=== PATIENT | female | born 1935 | race Caucasian/White ===

== ENCOUNTER 2019-02-22 08:31 | Observation (INO) ==
--- NOTE | 2019-02-22 09:24 | Emergency Department Note ---
Disposition Clinical Impression: Atypical chest pain Disposition: Admitted As Inpatient Condition: Good Referrals: Trevor Pierce, [employer] [Primary Care Provider] - Forms: ED Satisfaction Letter, Work/School Release Time of Disposition: 10:42 General Adult HPI - General Chief complaint: ED General Medical Stated complaint: R arm pain, back of head, dizzy Time Seen by Provider: 02/22/19 09:23 Source: patient Mode of arrival: ambulatory Limitations: no limitations - History of Present Illness HPI Narrative: 83-year-old white female [facility] this morning. She apparently had horrible right arm pain that seemed to be a sudden onset and people were concerned that she may be having a heart attack. She says that her arm no longer hurts. She says that her arm pain started last night while she was making dinner and felt like a dull ache. She says that she does not sleep well and woke up at 2:30 this morning. She says that she did some reading and dosed in and out. She says that she really did not have much problem until she came to the hospitalist morning. She says that her arm "was painting" so badly that someone else noticed. She also notes that she has had no previous problems with her heart, but does have a history of COPD. She says that she saw her primary care physician yesterday as a normal checkup. She says that we discussed the fact that she gets more short of breath with activity. She says that he added a new inhaler for her and she used that this morning. He also noted that if she had an elevation in her blood pressure that "he was going to send her to the heart doctor." She says that her blood pressure was okay so this was not necessary. She says that may be the shortness of breath with exertion has gotten worse recently. She is not short of breath currently. Pain Scale: 10 - Related Data Home Medications Medication Instructions Recorded Confirmed Gabapentin [Neurontin] 600 mg PO DAILY 08/15/16 02/22/19 Lisinopril [Zestril] 10 mg PO DAILY 08/15/16 02/22/19 Omeprazole [PriLOSEC] 40 mg PO BID 08/15/16 02/22/19 DULoxetine [Cymbalta] 02/22/19 Ropinirole HCl [Requip] 02/22/19 02/22/19 traZODone [TraZODone] 02/22/19 Previous Rx's Medication Instructions Recorded Ferrous Sulfate [Iron] 325 mg PO DAILY #30 tablet 01/04/19 Allergies Allergy/AdvReac Type Severity Reaction Status Date / Time morphine Allergy Rash Verified 01/03/19 10:59 oxycodone [From OxyContin] Allergy Chest Pain Verified 01/03/19 10:59 Penicillins [PCN] Allergy Chest Pain Verified 01/03/19 10:59 All systems ED: reviewed and negative except as stated. Constitutional: Denies: fever, chills, weakness, weight change Eyes: Denies: eye pain, eye discharge, vision change ENT ED: Denies: ear pain, throat pain, dental pain, hearing loss, epistaxis, congestion, dysphagia Cardiovascular: Reports: as per HPI, dyspnea on exertion. Denies: chest pain, palpitations Respiratory: Reports: as per HPI. Denies: cough, dyspnea, wheezes, hemoptysis, stridor Gastrointestinal: Denies: abdominal pain, nausea, vomiting, diarrhea, constipation, hematemesis, melena, hematochezia Genitourinary: Denies: dysuria, frequency, hematuria, discharge Musculoskeletal: Reports: as per HPI, myalgia. Denies: back pain, neck pain, arthralgia Integumentary: Denies: rash, abrasion, lesions Neurological: Denies: headache, weakness, numbness, paresthesias, confusion, abnormal gait, vertigo Psychiatric: Denies: anxiety, depression, suicidal thoughts, homicidal thoughts, auditory hallucinations, visual hallucinations Endocrine: Denies: fatigue Hematological/Lymphatic: Denies: easy bleeding, easy bruising Allergic/Immunologic: Denies: facial swelling, urticaria Past Medical History - Past Medical History Medical history: Reports: arthritis, cancer, COPD, GERD, hypertension Surgical history: Reports: breast surgery, cancer surgery, hysterectomy, knee replacement, orthopedic, other Psychiatric history: Reports: anxiety, depression 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 - Social History Smoking Status: Never smoker Smokeless Tobacco Status: No Alcohol use: Reports: none Drug use: Reports: none Physical Exam - General Limitations: no limitations General appearance: alert - Head Head exam: atraumatic, normocephalic, normal inspection - Eye Eye exam: Present: normal appearance, PERRL, EOMI - ENT ENT exam: normal exam, normal oropharynx, mucous membranes moist, TM's normal bilaterally - Neck Neck exam: Present: normal inspection - Chest Chest inspection: Present: normal inspection, symmetric chest wall rise - Respiratory Respiratory exam: Present: normal lung sounds bilaterally. Absent: respiratory distress, wheezes - Cardiovascular Cardiovascular exam: Present: regular rate, normal rhythm, normal heart sounds - Abdominal Exam Abdominal exam: Present: soft, Non-Tender. Absent: tenderness, distention, guarding, rebound, rigidity, organomegaly, mass, pulsatile mass - Extremities Exam Extremities exam: Present: normal inspection, full ROM. Absent: tenderness, pedal edema - Back Exam Back exam: Present: normal inspection, full ROM. Absent: tenderness - Neurological Exam Neurological exam: Present: alert, oriented X3, CN II-XII intact. Absent: motor sensory deficit - Psychiatric Psychiatric exam: Present: normal affect, normal mood - Skin Skin exam: Present: warm, dry, intact, normal color Course Course Narrative: The patient remained stable throughout her emergency department stay. She had no further pain, but says her pain comes and goes. The results of her evaluatio n are discussed with her and her daughter. Spoke with Dr. Butler at 10:30 AM and the patient will be observed here in [place]. Vital Signs Temperature 97.6 F 02/22/19 08:41 Pulse Rate 81 02/22/19 08:41 Respiratory Rate 18 02/22/19 08:41 Blood Pressure 148/70 02/22/19 08:41 O2 Sat by Pulse Oximetry 96 02/22/19 08:41 Temperature 97.6 F 02/22/19 08:41 Pulse Rate 66 02/22/19 10:39 Respiratory Rate 18 02/22/19 10:39 Blood Pressure 152/70 02/22/19 10:39 O2 Sat by Pulse Oximetry 95 02/22/19 10:39 Oxygen Delivery Oxygen Delivery Room Air Medical Decision Making - Lab Data Result diagrams: 02/22/19 09:43 02/22/19 09:43 Lab Results 02/22/19 02/22/19 02/22/19 Range/Units 09:43 09:43 09:43 WBC 5.0 (4.3-11.1) K/mcL RBC 4.20 (3.82-4.97) M/mcL Hgb 11.6 (11.5-15.4) g/dL Hct 37.7 (35.3-44.9) % MCV 89.8 (83.0-100.0) fL MCH 27.6 L (28.0-33.3) pg MCHC 30.8 L (31.6-35.5) g/dL RDW 16.8 H (11.5-14.5) % Plt Count 188 (140-400) K/mcL MPV 9.1 L (9.4-12.4) fL Immature Gran % 0.2 (0-4) % Seg Neutrophils % 53.5 % Lymphocytes % 32.0 % Monocytes % 9.7 % Eosinophils % 4.2 % Basophils % 0.4 % Neutrophils # 2.7 (1.6-8.9) K/mcL Lymphocytes # 1.6 (0.6-4.6) K/mcL Monocytes # 0.5 (0.0-1.3) K/mcL Eosinophils # 0.2 (0.0-0.6) K/mcL Basophils # 0.0 (0.0-0.2) K/mcL PT 11.5 (9.4-12.1) Seconds INR 1.0 Sodium 138 (136-145) mEq/L Potassium 4.1 (3.5-5.1) mEq/L Chloride 104 (98-107) mEq/L Carbon Dioxide 31 H (23-29) mEq/L BUN 11 (8-23) mg/dL Creatinine 0.83 (0.60-1.20) mg/dL Est GFR ( Amer) > 60 (> 60) Est GFR (Non-Af Amer) > 60 (> 60) BUN/Creatinine Ratio 13 (6-26) Glucose 144 H (70-105) mg/dL Calculated Osmolality 288 (280-300) Lactic Acid (0.5-2.2) mmol/L Calcium 9.4 (8.6-10.3) mg/dL Total Bilirubin 0.3 (0.3-1.0) mg/dL AST 18 (13-39) Units/L ALT 14 (7-52) Units/L Alkaline Phosphatase 80 (34-104) Units/L Troponin I < 0.03 (< 0.04) ng/mL Serum Total Protein 6.9 (6.4-8.9) g/dL Albumin 4.0 (3.5-5.7) g/dL Globulin 2.9 (2.4-3.5) g/dL Albumin/Globulin Ratio 1.4 (1.1-2.2) 02/22/19 Range/Units 09:43 WBC (4.3-11.1) K/mcL RBC (3.82-4.97) M/mcL Hgb (11.5-15.4) g/dL Hct (35.3-44.9) % MCV (83.0-100.0) fL MCH (28.0-33.3) pg MCHC (31.6-35.5) g/dL RDW (11.5-14.5) % Plt Count (140-400) K/mcL MPV (9.4-12.4) fL Immature Gran % (0-4) % Seg Neutrophils % % Lymphocytes % % Monocytes % % Eosinophils % % Basophils % % Neutrophils # (1.6-8.9) K/mcL Lymphocytes # (0.6-4.6) K/mcL Monocytes # (0.0-1.3) K/mcL Eosinophils # (0.0-0.6) K/mcL Basophils # (0.0-0.2) K/mcL PT (9.4-12.1) Seconds INR Sodium (136-145) mEq/L Potassium (3.5-5.1) mEq/L Chloride (98-107) mEq/L Carbon Dioxide (23-29) mEq/L BUN (8-23) mg/dL Creatinine (0.60-1.20) mg/dL Est GFR ( Amer) (> 60) Est GFR (Non-Af Amer) (> 60) BUN/Creatinine Ratio (6-26) Glucose (70-105) mg/dL Calculated Osmolality (280-300) Lactic Acid 0.9 (0.5-2.2) mmol/L Calcium (8.6-10.3) mg/dL Total Bilirubin (0.3-1.0) mg/dL AST (13-39) Units/L ALT (7-52) Units/L Alkaline Phosphatase (34-104) Units/L Troponin I (< 0.04) ng/mL Serum Total Protein (6.4-8.9) g/dL Albumin (3.5-5.7) g/dL Globulin (2.4-3.5) g/dL Albumin/Globulin Ratio (1.1-2.2) - EKG Data EKG #1 EKG results narrative: Twelve-lead EKG shows a left bundle-branch block that is not new. Rate 77. Normal axis. No acute ST elevation or depression appreciated.
[2019-02-22] MEDS ORDERED: Aspirin 81 MG TAB.CHEW PO STA (09:32)
[2019-02-22 09:50] LABS: Basophils % 0.4 %; Eosinophils # 0.2 K/mcL (0.0-0.6); Eosinophils % 4.2 %; Hematocrit 37.7 % (35.3-44.9); Hemoglobin 11.6 g/dL (11.5-15.4); Immature Granulocytes % 0.2 % (0-4); Lymphocytes # 1.6 K/mcL (0.6-4.6); Mean Corpuscular HGB Conc 30.8 g/dL (31.6-35.5); Mean Corpuscular Hemoglobin 27.6 pg (28.0-33.3); Mean Corpuscular Volume 89.8 fL (83.0-100.0); Mean Platelet Volume 9.1 fL (9.4-12.4); Monocytes # 0.5 K/mcL (0.0-1.3); Monocytes % 9.7 %; Neutrophils # 2.7 K/mcL (1.6-8.9); Platelet Count 188 K/mcL (140-400); Red Cell Distribution Width 16.8 % (11.5-14.5); Segmented Neutrophils % 53.5 %
[2019-02-22 10:00] LABS: Prothrombin Time 11.5 Seconds (9.4-12.1)
[2019-02-22 10:05] LABS: Alanine Aminotransferase 14 Units/L (7-52); Albumin/Globulin Ratio 1.4 (1.1-2.2); Alkaline Phosphatase 80 Units/L (34-104); Aspartate Amino Transferase 18 Units/L (13-39); BUN/Creatinine Ratio 13 (6-26); Bilirubin,Total 0.3 mg/dL (0.3-1.0); Blood Urea Nitrogen 11 mg/dL (8-23); Calcium 9.4 mg/dL (8.6-10.3); Carbon Dioxide 31 mEq/L (23-29); Chloride 104 mEq/L (98-107); Globulin 2.9 g/dL (2.4-3.5); Glucose 144 mg/dL (70-105); Osmolality,Calculated 288 (280-300); Potassium 4.1 mEq/L (3.5-5.1); Sodium 138 mEq/L (136-145); Total Protein 6.9 g/dL (6.4-8.9); eGFR For Non-African Americans > 60 (> 60)
[2019-02-22 10:09] LABS: Troponin I < 0.03 ng/mL (< 0.04)
--- NOTE | 2019-02-22 12:14 | Internal Med History&Physical ---
Addendum entered and electronically signed by Chetan Butler MD 02/23/19 10:10: I have personally performed a face to face evaluation on this patient. I have r eviewed and agree with the care plan. History and Exam by me shows: The patient was evaluated by me yesterday but the note was not complete. This documentation is being completed today for that reason. Patient with onset of severe arm pain to the elbow when lifting her hands above head touching clay on her car. No exertional chest pain or pressure, dyspnea on exertion beyond her usual. Discussed at length with her. This sounds more like shoulder pain but since rule out has been begun, troponins will be obtained. Patient has no complaint of chest discomfort, dyspnea, orthopnea, breathing problems, palpitations, nausea or vomiting, constipation or diarrhea, other changes in bowel habits, heartburn, difficulty with urination, kidney problems or kidney stones, fevers chills or sweats, rash or itching, seizures, headache or lightheadedness, heat or cold intolerance, blood problems or anemia, or other new complaints, except as mentioned above. Review of systems is otherwise negative. Examination: (Except as mentioned above): General: In no apparent distress, alert and oriented 3. Head: Atraumatic and normocephalic. Eyes: Extraocular muscles are intact, pupils equal round and reactive to light and accommodation. Sclerae anicteric. Ears: External ears are normal to inspection and hearing is grossly normal. Nose: Patent without lesion noted. Mouth: No intraoral lesions seen. Dentition is unremarkable. Neck: Supple with trachea midline. There is no thyromegaly or adenopathy and carotids are 2+ without bruit heard. Respiratory: No use of accessory muscles. Lungs are clear throughout. Normal airflow. Cardiovascular: Regular rate and rhythm without murmur appreciated. Abdomen: Bowel sounds are normal. No hepatosplenomegaly masses or tenderness. Obese and therefore difficult to palpate deeply. Extremities: No cyanosis clubbing or edema. She has tenderness to her right anterior shoulder. This partially reproduces her pain. Neurological: A and O 3. Cranial nerves II through XII are intact. No focal deficits and no abnormal movements or postures. Skin: Warm and non-diaphoretic with no lesions noted. Breasts, pelvic and rectal: Not examined. Original Note: Date of Encounter: 02/23/19 Time of Encounter: 12:07 Assessment and Plan (1) Right arm pain Current visit: Yes Status: Acute Patient presents with complaints of intermittent severe right arm pain. Patient states that this pain began yesterday, but later resolved later in the day. Patient's pain returned this morning, but resolved just prior to arriving to emergency department. Patient has had no further treatment other than aspirin. No current history of cardiac disease, but multiple risk factors. Initial troponin and EKG were negative. Chest x-ray shows no acute issues. Patient will be admitted to observation bed and will have serial troponins and cardiac monitoring overnight. (2) Anxiety Current visit: Yes Status: Chronic Patient with a history of anxiety and depression. Patient currently appears relaxed and is interacting with staff well. Patient states a recent history of family stress at is caused her increased anxiety. We will continue patient on her current home medications (3) Lower back pain Current visit: Yes Status: Chronic Patient states a history of lumbar disc disease with a remote surgery in the [facility]. Patient states she continues to have paresthesia to the left foot and after standing for long periods she develops paresthesia to her left lateral thigh. Denies any current low back pain. No focal neurological deficits noted. We will continue with current medications Qualifiers: Chronicity: unspecified Back pain laterality: left Sciatica laterality: sciatica of left side Qualified Code(s): M54.42 - Lumbago with sciatica, left side (4) GERD (gastroesophageal reflux disease) Current visit: Yes Status: Chronic Patient states a history of GERD and states that she has had recent reflux. We will continue patient on her PPI. We will consider gallbladder ultrasound Qualifiers: Esophagitis presence: esophagitis presence not specified Qualified Code(s): K21.9 - Gastro-esophageal reflux disease without esophagitis (5) HTN (hypertension) Current visit: No Status: Chronic Vital signs stable during her presentation. We will continue on her current home medications. Qualifiers: Hypertension type: essential hypertension Qualified Code(s): I10 - Essential (primary) hypertension Internal Medicine - H&P: HPI Chief complaint: right arm pain Admitted From: Home Plans for Post Hospital Care: Home History of present illness: Ms. Atwood is a 83 year old female, who presented to the emergency department with complaints of a right arm pain that has occurred intermittently over the past 24 hours. Patient states that her right arm pain had become very severe yesterday, which she describes as a sharp pain mostly to the upper arm. Patient states that after some time her pain resolved without any medication or intervention. 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 Patient states that her pain was noticeable to her fellow volunteers and he recommended her to come to the emergency department. Patient states that a similar pain to her right arm had occurred several years ago, during which time she went to the emergency department. Patient states that no reason was found at that time for the pain and that she received pain medication while in the emergency department, which allowed the pain to be relieved and it never returned after that until yesterday. Patient does state that she was doing several activities yesterday with repetitive movement of arm that may have exacerbated the pain. Patient states that today her pain recurred after she had reached up to shut the hatchback lid of her car. Patient states that her pain had resolved by the time she arrived to the emergency department. She denied any radiation of the pain anywhere else. She denied any shortness of breath, nausea or palpitations. Initial chest x-ray shows no acute process, except for a large hiatal hernia. Initial troponins were negative. EKG was reviewed which shows sinus rhythm with no ischemic changes Patient states that she has had no previous cardiac history and did receive a physical proximal 5 years ago in which she had a stress test. She states that her stress test was normal at that time. She has had some dyspnea with exertion recently and went to see her family physician recently, where she was diagnosed with mild COPD and given a rescue inhaler. She does state that she continues to have her gallbladder and has had a history of GERD, which she currently takes a PPI. She states a history of depression, hypertension and lumbar disc disease. She states that she has had lumbar surgery before and continues to have left leg paresthesia to the lower leg and foot. Patient states that there has been multiple stresses at home recently causing her increased anxiety and depression. Past Med Surg Social Fam HX - Past Medical History Medical history: arthritis, cancer, COPD, GERD, hypertension Additional medical history: htn. gerd. malignant neoplasm of breast Psychiatric history: anxiety, depression - Past Surgical History Surgical History: breast surgery, cancer surgery, hysterectomy, knee replacement, orthopedic, other Additional surgical history: Back surgery - Social History Smoking Status: Never smoker Smokeless Tobacco Status: No Alcohol use: none Drug use: none - Family History Mother Hx Family Cancer: Yes Internal Medicine - H&P: Meds RX: Gabapentin [Neurontin] 600 mg PO TID 08/15/16 [History] RX: Lisinopril [Zestril] 10 mg PO DAILY 08/15/16 [History] RX: Omeprazole [PriLOSEC] 40 mg PO BID 08/15/16 [History] RX: Ferrous Sulfate [Iron] 325 mg PO DAILY #30 tablet 01/04/19 [Rx] DULoxetine [Cymbalta] 60 mg PO DAILY 02/22/19 [History] Ropinirole HCl [Requip] 4 PO TID 02/22/19 [History] traZODone [TraZODone] 100 PO HS 02/22/19 [History] Allergy/AdvReac Type Severity Reaction Status Date / Time morphine Allergy Rash Verified 01/03/19 10:59 oxycodone [From OxyContin] Allergy Chest Pain Verified 01/03/19 10:59 Penicillins [PCN] Allergy Chest Pain Verified 01/03/19 10:59 All Systems PM: A 10-system review of systems was performed and is negative for pertinent findings except as documented above in the HPI. - Constitutional Constitutional: as per HPI, no chills, no fever(s), no night sweats - EENT Eyes: as per HPI, no change in vision, no discharge, no pain, no photophobia Ears: no ear discharge, no ear pain, no tinnitus Nose, mouth and throat: as per HPI, no dysphagia, no nasal discharge, no neck pain, no sore throat - Cardiovascular Cardiovascular ROS IM: as per HPI, no chest pain, no diaphoresis, no dyspnea, no lightheadedness, no palpitations, no syncope - Respiratory Respiratory: as per HPI, no cough, no dyspnea, no wheezing, no excessive phlegm production - Gastrointestinal Gastrointestinal: as per HPI, no abdominal pain, no diarrhea, no hematemesis, no hematochezia, no melena, no nausea, no vomiting - Genitourinary Genitourinary: as per HPI, no change in urinary stream, no dysuria, no flank pain, no hematuria - Musculoskeletal Musculoskeletal ROS IM: as per HPI, no numbness, no tingling - Integumentary Integumentary IM: as per HPI, no rash, no unusual bruising - Neurological Neurological ROS: as per HPI, paresthesias, no confusion, no convulsions, no focal weakness, no numbness, no tingling, no tremor(s) - Psychiatric Psychiatric: as per HPI, anxiety, depression - Endocrine Endocrine IM: as per HPI - Hematologic/Lymphatic Hematologic/Lymphatic: no easy bruising - Constitutional Vitals: Temp Pulse Resp BP Pulse Ox 97.6 F 66 18 152/70 95 02/22/19 08:41 02/22/19 10:39 02/22/19 10:39 02/22/19 10:39 02/22/19 10:39 General appearance: Present: A&O X 3, pleasant - Head Head exam: Present: atraumatic, normocephalic - Eye Eye exam: Present: PERRL, conjuntiva pink, sclera anicteric Pupils: Present: PERRL - Neck Neck exam general surgery: Present: supple, trachea midline. Absent: lymphadenopathy - Respiratory Respiratory exam: Present: CTAB. Absent: accessory muscle use, rales, rhonchi, wheezes - Cardiovascular Cardiovascular exam: Present: RRR, +S1, +S2. Absent: diastolic murmur, gallop, rubs, systolic murmur - GI/Abdominal GI/Abdominal exam: Present: normal bowel sounds, soft, no peritoneal signs. Absent: distended, tenderness - Extremities Exam Extremities exam: Present: warm, radial pulses palpable and symmetrical. Absent: calf tenderness, cyanotic, pedal edema - Neurological Exam Neurological exam: Present: CN II-XII intact, oriented X3, no focal deficits. Absent: pronater drift, facial droop, speech deficit - Skin Skin exam: Present: dry, intact Internal Med - H&P Results - Labs CBC & Chem 7: 02/23/19 04:12 02/23/19 04:12 Labs: Short CBC 02/22/19 Range/Units 09:43 WBC 5.0 (4.3-11.1) K/mcL Hgb 11.6 (11.5-15.4) g/dL Hct 37.7 (35.3-44.9) % Plt Count 188 (140-400) K/mcL Neutrophils # 2.7 (1.6-8.9) K/mcL BMP 02/22/19 09:43 Sodium 138 Potassium 4.1 Chloride 104 Carbon Dioxide 31 H BUN 11 Creatinine 0.83 Glucose 144 H Calcium 9.4 Cardiac Enzymes 02/22/19 Range/Units 09:43 Troponin I < 0.03 (< 0.04) ng/mL Liver Function 02/22/19 Range/Units 09:43 Total Bilirubin 0.3 (0.3-1.0) mg/dL AST 18 (13-39) Units/L ALT 14 (7-52) Units/L Alkaline Phosphatase 80 (34-104) Units/L Albumin 4.0 (3.5-5.7) g/dL - Impressions ITS Impressions Chest X-Ray 02/22/19 09:32 IMPRESSION: Large hiatal hernia. No acute cardiopulmonary findings. D/ / Verna Grullon MD / Verna Grullon MD Interpreting Provider: Verna Grullon MD
[2019-02-22] MEDS ORDERED: Acetaminophen 325 MG TABLET PO PRN ×2 (13:09→14:21)
[2019-02-22] MEDS ORDERED: Ondansetron ODT 4 MG TAB.RAPDIS SL PRN ×3 (13:09→14:21)
[2019-02-22] MEDS ORDERED: Mag Hydrox/Al Hydrox/Simeth 30 ML UDC PO PRN ×2 (13:09→14:21)
[2019-02-22] MEDS ORDERED: Naloxone 0.4 MG/ML INJ IVP PRN ×4 (13:09→14:21)
[2019-02-22] MEDS ORDERED: Ondansetron 4 MG/2 ML VIAL IVP PRN ×2 (13:09→14:21)
--- NOTE | 2019-02-22 15:25 | Electrocardiograph Report ---
[place] [id number] Test Date: 2019-02-22 Pat Name: Shoshana Atwood Department: EDG3 Room: 114 Gender: F [employer] Rep[employer]r: : [id number] Requested By: Ciera Erickson Order Number: [id number] Reading MD: Chema Manuel Measurements Intervals [place] Rate: 77 P: 22 IL: 159 QRS: -22 QRSD: 146 T: 120 QT: 427 QTc: 484 Interpretive Statements Sinus rhythm Probable left atrial enlargement Left bundle branch block Electronically Signed On 02-22-2019 15:23:29 EDT by Chema Manuel
[2019-02-22] MEDS ORDERED: *HR* LORazepam 0.5 MG TABLET PO PRN (17:22)
[2019-02-22] MEDS: Gabapentin 300 MG CAPSULE PO SCH (20:09)
[2019-02-22] MEDS: rOPINIRole 1 MG TABLET PO SCH (20:10)
[2019-02-22] MEDS ORDERED: traZODone 50 MG TABLET PO SCH (21:00)
[2019-02-23 04:14] LABS: Hematocrit 37.7 % (35.3-44.9); Hemoglobin 11.6 g/dL (11.5-15.4); Mean Corpuscular HGB Conc 30.8 g/dL (31.6-35.5); Mean Corpuscular Hemoglobin 27.8 pg (28.0-33.3); Mean Corpuscular Volume 90.2 fL (83.0-100.0); Mean Platelet Volume 9.5 fL (9.4-12.4); Platelet Count 178 K/mcL (140-400); Red Blood Count 4.18 M/mcL (3.82-4.97); Red Cell Distribution Width 16.9 % (11.5-14.5)
[2019-02-23 04:29] LABS: Alanine Aminotransferase 13 Units/L (7-52); Albumin 3.8 g/dL (3.5-5.7); Albumin/Globulin Ratio 1.4 (1.1-2.2); Alkaline Phosphatase 76 Units/L (34-104); Aspartate Amino Transferase 16 Units/L (13-39); BUN/Creatinine Ratio 11 (6-26); Bilirubin,Total 0.4 mg/dL (0.3-1.0); Blood Urea Nitrogen 9 mg/dL (8-23); Calcium 9.4 mg/dL (8.6-10.3); Carbon Dioxide 31 mEq/L (23-29); Chloride 104 mEq/L (98-107); Chol/HDL Ratio 3.1 (0-4.9); Cholesterol 144 mg/dL (< 200); Globulin 2.8 g/dL (2.4-3.5); Glucose 121 mg/dL (70-105); HDL Cholesterol 46 mg/dL (40-59); LDL Cholesterol,Calculated 76 mg/dL (0-99); Magnesium 2.1 mg/dL (1.6-2.6); Osmolality,Calculated 290 (280-300); Phosphorous 4.1 mg/dL (2.7-4.5); Sodium 140 mEq/L (136-145); Total Protein 6.6 g/dL (6.4-8.9); Triglycerides 110 mg/dL (< 150); eGFR For Non-African Americans > 60 (> 60)
[2019-02-23 07:35] VITALS: BP 135/71
[2019-02-23] MEDS: Gabapentin 300 MG CAPSULE PO SCH (07:37)
[2019-02-23] MEDS: rOPINIRole 1 MG TABLET PO SCH (07:37)
[2019-02-23] MEDS ORDERED: Ascorbic Acid 500 MG TABLET PO SCH (09:00)
[2019-02-23] MEDS ORDERED: Gabapentin 300 MG CAPSULE PO SCH (09:00)
[2019-02-23 09:12] LABS: Estimated Average Glucose 131 mg/dl; Hemoglobin A1C 6.2 %
--- NOTE | 2019-02-23 09:56 | Discharge Summary ---
Addendum entered and electronically signed by Chava Casillas CNP 02/23/19 10:20: Patient's labs reviewed this morning which showed a hemoglobin A1c of 6.2. Addendum entered and electronically signed by Chetan Butler MD 02/23/19 10:13: I have personally performed a face to face evaluation on this patient. I have reviewed and agree with the care plan. History and Exam by me shows: Patient is without symptoms overnight. However, with ADLs this morning, had some right shoulder and upper arm pain, again. Oxygen, telemetry, troponins were all negative. Discussed care with other providers and/or nursing. Patient has no complaint of chest discomfort, dyspnea, orthopnea, palpitations, nausea or vomiting, constipation or diarrhea, other changes in bowel habits, difficulty with urination, rash or itching, or other new complaints, except as mentioned above. Review of systems is otherwise negative. Examination: (Except as mentioned above): General: In no apparent distress. Alert and oriented 3. Nondiaphoretic. Head: Atraumatic and normocephalic. Respiratory: No use of accessory muscles. Lungs are clear throughout. Normal airflow. Cardiovascular: Regular rate and rhythm without murmur appreciated. Abdomen: Bowel sounds are normal. No hepatosplenomegaly mass or tenderness appreciated. Obese and therefore difficult to palpate deeply. Patient is examined upright in chair and this also limits exam. Extremities: No cyanosis clubbing or edema. Pain is reproducible when she has anterior extension of arm and meets passive resistance. Skin: Warm and non-diaphoretic with no new lesions noted. Suspect shoulder is the source of her pain. Low suspicion of cardiac component. Original Note: Date of Encounter: 02/23/19 Time of Encounter: 09:53 - Discharge Diagnosis (1) Right arm pain Priority: Primary Status: Acute Comments: Patient was admitted overnight for observation and diagnostic workup for rule out MA. Patient presented with a right arm pain that she has had intermittently for the past 2 days. Patient's had a similar pain before in the past and received a cardiac workup at that time which was negative. Patient also noted in her history to have had a stress test and echocardiogram within the last 2 years which also showed negative. Patient was admitted overnight and had serial troponins performed which were all negative. Chest x-ray and EKG both showed no acute issues. Patient states she continues to have a slight pain to her right upper arm that began this morning during a.m. care. Patient denies any dyspnea, chest palpitations or productive cough. Patient will be discharged to home and is to follow-up with her PCP and cardiology after discharge (2) Anxiety Priority: Secondary Status: Chronic Comments: Patient had related issues of anxiety due to home stress issues. Patient appears relaxed and is interacting well with nursing overnight. No behavior issues reported. Patient is continue home medications and follow-up with PCP after discharge (3) Lower back pain Priority: Secondary Status: Chronic Comments: No acute issues. Patient states she continues to have some paresthesia to the left lower leg and foot. No other acute neurological deficits noted on exam. Patient is continue follow up with her orthopedic surgeon and PCP Qualifiers: Chronicity: unspecified Back pain laterality: left Sciatica laterality: sciatica of left side Qualified Code(s): M54.42 - Lumbago with sciatica, left side (4) GERD (gastroesophageal reflux disease) Priority: Secondary Status: Chronic Comments: No complaints overnight. Patient is continue with current medications after discharge in follow-up PCP. Qualifiers: Esophagitis presence: esophagitis presence not specified Qualified Code(s): K21.9 - Gastro-esophageal reflux disease without esophagitis (5) HTN (hypertension) Priority: Secondary Status: Chronic Comments: Vital signs remained stable overnight. Patient is to continue on home medications after discharge and follow-up with PCP Qualifiers: Hypertension type: essential hypertension Qualified Code(s): I10 - Essential (primary) hypertension Hospital course: Ms. Atwood is a 83 year old female , who was admitted overnight under observation for rule out MA. Patient presented to the emergency department with complaints of a severe pain to her right upper arm which began the day prior to admission. Patient stated that her pain was intermittent and by the time she presented to emergency for her pain had resolved. Patient had a similar incident of right arm pain several years ago during which time she stated she had a complete evaluation in emergency department was discharged home after receiving pain medication in the pain had not returned until the day prior to admission. Patient states that she has a dull ache to the right upper arm at this time which began this morning. Patient had serial troponins done overnight which were negative 4. EKG and chest x-ray showed no acute issues. Patient has had a complete cardiac workup approximately 2 years ago that included echocardiogram and a nuclear stress test, which were also negative. Patient will be discharged to home and is to continue on her current home medications and follow-up with her PCP. Discharge discussed with: patient Time spent discussing smoking cessation with patient: 3 to 10 minutes - Time Spent with Patient Total time spent providing and/or coordinating discharge services: Time spent: Less than 30 minutes - Discharge Medications Prescriptions: No Action Ferrous Sulfate [Iron] 325 mg PO DAILY #30 tablet Omeprazole [PriLOSEC] 40 mg PO BID Gabapentin [Neurontin] 600 mg PO TID Lisinopril [Zestril] 10 mg PO DAILY Ropinirole HCl [Requip] 4 PO TID DULoxetine [Cymbalta] 60 mg PO DAILY traZODone [TraZODone] 100 PO HS Home Medications: Gabapentin [Neurontin] 600 mg PO TID 08/15/16 [History] Lisinopril [Zestril] 10 mg PO DAILY 08/15/16 [History] Omeprazole [PriLOSEC] 40 mg PO BID 08/15/16 [History] Ferrous Sulfate [Iron] 325 mg PO DAILY #30 tablet 01/04/19 [Rx] DULoxetine [Cymbalta] 60 mg PO DAILY 02/22/19 [History] Ropinirole HCl [Requip] 4 PO TID 02/22/19 [History] traZODone [TraZODone] 100 PO HS 02/22/19 [History] Allergies/Adverse Reactions: Allergy/AdvReac Type Severity Reaction Status Date / Time morphine Allergy Rash Verified 01/03/19 10:59 oxycodone [From OxyContin] Allergy Chest Pain Verified 01/03/19 10:59 Penicillins [PCN] Allergy Chest Pain Verified 01/03/19 10:59 Date of admission: 02/22/19 13:40 Primary care physician: Trevor Pierce CNP Discharging clinician: Chetan Butler - Constitutional Vitals: Temp Pulse Resp BP Pulse Ox 97.8 F 90 16 135/71 95 02/23/19 07:34 02/23/19 07:34 02/23/19 07:34 02/23/19 07:34 02/23/19 07:34 General appearance: Present: A&O X 3, pleasant - Head Head exam: Present: atraumatic, normocephalic - Eye Eye exam: Present: PERRL, conjuntiva pink, sclera anicteric Pupils: Present: PERRL - Neck Neck exam general surgery: Present: supple, trachea midline. Absent: lymphadenopathy - Respiratory Respiratory exam: Present: CTAB. Absent: accessory muscle use, rales, rhonchi, wheezes - Cardiovascular Cardiovascular exam: Present: RRR, +S1, +S2. Absent: diastolic murmur, gallop, rubs, systolic murmur - GI/Abdominal GI/Abdominal exam: Present: normal bowel sounds, soft, no peritoneal signs. Absent: distended, tenderness - Extremities Exam Extremities exam: Present: warm, radial pulses palpable and symmetrical. Absent: calf tenderness, cyanotic, pedal edema - Neurological Exam Neurological exam: Present: CN II-XII intact, oriented X3, no focal deficits. Absent: pronater drift, facial droop, speech deficit - Skin Skin exam: Present: dry, intact - Patient Status Disposition: Home, Self-Care Condition: Good Functional capacity at discharge: independent ambulation Overall status at discharge: patient is progressing back to baseline - Discharge Instructions Follow Up With: Trevor Pierce, [employer] [facility] [facility] [Primary Care Provider] - - Diet and Activity Activity: increase activity as tolerated Diet: low fat, low cholesterol, low salt diet
== END 2019-02-23 10:45 | disposition home or self-care (01) ==
LOC: EMEROOGRE 08:31 → INPGRE 08:31